=== PATIENT | male | born 1945 | race Caucasian/White ===

== ENCOUNTER 2018-11-29 06:57 | Day surgery (SDC) | payer MEDICARE ==
[2018-11-29] MEDS ORDERED: LIDOCAINE 2% MDV (20MG/ML) 20ML VIAL IV ONE (06:58)
[2018-11-29] MEDS ORDERED: PROPOFOL 10 MG/ML VIAL IV ONE (06:58)
--- NOTE | 2018-12-02 09:51 | Operative Note ---
DATE OF SURGERY: 11/29/2018 SURGEON: Gaby Mcginnis MD OPERATION: COLONOSCOPY. INDICATIONS: This is a 73-year-old male with history of average risk for colorectal cancer. Last colonoscopy about 10 years ago. He presented for screening colonoscopy. POSTOPERATIVE DIAGNOSES: 1. A 6 mm sessile polyp in the ascending colon that was removed by cold snare. 2. Two 6-8 mm sessile transverse colon polyps which were removed by cold snare. 3. Three 6-8 mm sessile descending colon polyps that were also removed by cold snare. 4. A 6 mm sessile polyp in the sigmoid colon that was removed by cold snare. 5. Scattered left-sided colonic diverticulosis. ANESTHESIA: Sedation is per Anesthesia. Pulse oximetry was monitored throughout the procedure to maintain O2 saturation of 90% or greater. Supplemental oxygen was administered via nasal cannula. Cardiac and vital signs were monitored throughout the duration of the procedure, and they were stable. The procedure of colonoscopy and risks and alternatives of the procedure, including the risk of bleeding and perforation, among others, were explained to the patient who voiced understanding and agreed to have the procedure done. Physical examination was performed, and the patient was found stable for sedation. PROCEDURE: The patient was placed in the left lateral position. Sedation was initiated. A digital rectal exam was performed and showed some mild external hemorrhoids with no palpable rectal masses. The prostate is enlarged. An Olympus PCF-180AL colonoscope was then inserted into the rectum under direct visualization. It was advanced to the cecum without difficulty. The ileocecal valve and appendiceal orifice were identified and photographed. The colonic mucosa was carefully examined upon introduction of the colonoscope. There were scattered diverticula noted in the sigmoid and descending colon. In the ascending colon was a 6 mm sessile polyp that was noted and removed by cold snare. There were no other lesions noted. Upon withdrawal of the colonoscope, the cecum, the rest of the colon mucosa appeared normal. In the transverse colon were two 6-8 mm sessile polyps that were noted and they were removed by cold snare. In the descending colon were three 6-8 mm sessile polyps that were noted and were removed by cold snare. In the sigmoid colon was a 6 mm sessile polyp that was noted and was also removed by cold snare. There were no other lesions noted. In the rectum, retroflexion was performed and grade 1 internal hemorrhoids were noted. The colonoscope was then withdrawn and the procedure was terminated. The patient tolerated the procedure well without any immediate complications. The patient remained with stable vital signs and was transferred to the recovery room. RECOMMENDATIONS: 1. The patient should be on a high-fiber diet. 2. The patient is to have a repeat colonoscopy for surveillance in 3 years. Thank you for allowing me to participate in the care of your patient. CC: Cirilo MCKENZIE
== END 2018-11-29 09:15 | disposition home or self-care (01) ==
LOC: HOP 06:57
PROVIDERS: ATTEND Internal Medicine Gastroenterology
DX: Z12.11 Encounter for screening for malignant neoplasm of colon (principal); D12.4 Benign neoplasm of descending colon; D12.5 Benign neoplasm of sigmoid colon; D12.3 Benign neoplasm of transverse colon; D12.2 Benign neoplasm of ascending colon; K57.30 Diverticulosis of large intestine without perforation or abscess without bleeding; I10 Essential (primary) hypertension; E11.9 Type 2 diabetes mellitus without complications